=== PATIENT | female | born 1965 | race Caucasian/White ===

== ENCOUNTER → 2025-01-08 | Outpatient (CLI) | payer OTHER ==
--- NOTE | 2025-01-08 19:35 | MR ---
EXAMINATION TYPE: MR sacroiliac joints wo/w con DATE OF EXAM: 01/08/2025 6:23 PM COMPARISON: None. CLINICAL INDICATION: Female, 59 years old with history of M46.1SACROILIITIS, NOT ELSEWHER, hip pain TECHNIQUE: Triplane multisequence imaging was performed of the pelvis. IV Contrast: 8ml mL Gadobutrol FINDINGS: Reproductive: Vagina: Unremarkable. Uterus: The uterus is anteverted in position. Uterus measures 8.2 x 8.4 x 7.5 cm. The endometrium and junctional zone are within normal limits. Multiple nabothian cysts are seen in the lower uterine se gment. Large fibroid posteriorly measuring up to 7.1 x 7.4 x 5.8 cm other fibroids are also present. Ovaries: Follicular changes are noted to the ovaries. Bladder: Unremarkable. Bowel: Unremarkable as visualized. Peritoneum: No free fluid or adenopathy. Lymph nodes: No evidence of adenopathy. Vasculature: Unremarkable. Musculoskeletal: Bone marrow signal is within normal signal intensity. No significant inversion cover signal around the sacroiliac joints. There are mild/small osteophytes present bilaterally. Abdominal wall/soft tissues: Unremarkable. IMPRESSION: 1. Mild bilateral sacroiliac joint degeneration. No active inflammation. 2. Large fibroid present. [facility], , 01/08/2025 7:33 PM
== END | disposition home or self-care (01) ==
LOC: RADMRIMAIN 16:52
PROVIDERS: ATTEND Nurse Practitioner Primary Care
DX: M46.1 Sacroiliitis, not elsewhere classified (principal); M53.3 Sacrococcygeal disorders, not elsewhere classified; M51.16 Intervertebral disc disorders with radiculopathy, lumbar region; Z15.89 Genetic susceptibility to other disease
CPT/HCPCS: 72197; A9585